=== PATIENT | female | born 1980 | race Caucasian/White ===

== ENCOUNTER 2016-11-11 11:25 | Emergency (ER) | payer SELFPAY ==
[2016-11-11 11:34] VITALS: BP 122/67
--- NOTE | 2016-11-11 12:17 | XRAY Preliminary Report ---
Exam: XR Ankle 3 View RT IMPRESSION: 1. Well-corticated ossification consistent with old avulsion injury at the tip of the medial malleolu s. 2. Lateral soft tissue swelling. [facility] SITE ID: [id number]
--- NOTE | 2016-11-11 12:19 | XRAY Report ---
EXAM: RIGHT ANKLE RADIOGRAPHY EXAM DATE: 11/11/2016 11:54 AM. CLINICAL HISTORY: Limited ROM and pain with ambulation. . COMPARISON: None. TECHNIQUE: 3 views. FINDINGS: Bones: Small corticated ossification adjacent to the inferior tip of the medial malleolus. No acute f racture identified. No significant joint space narrowing. Ankle mortise appears intact. Joints: Normal. No effusion. No subluxations. The ankle mortise is normally aligned. Soft Tissues: Lateral soft tissue swelling. IMPRESSION: 1. Well-corticated ossification consistent with old avulsion injury at the tip of the medial malleolu s. 2. Lateral soft tissue swelling. [facility] Referring Provider Line: [phone] SITE ID: [id number]
--- NOTE | 2016-11-11 12:59 | ED Physician Documentation ---
PD HPI LOWER EXT INJURY - Stated complaint Stated Complaint: R ANKLE INJ - Chief complaint Chief Complaint: Trauma Ext - History obtained from History obtained from: Patient - History of Present Illness PD HPI LOW EXT INJURY LOCATION: Right, Ankle Type of injury: Twist Where injury occurred: Home Timing - onset: Last night Timing - duration: Days (1) Timing - details: Abrupt onset Pain level max: 8 Pain level now: 5 Improved by: Rest, Ice, Immobilization Worsened by: Moving, Palpating Associated symptoms: Swelling. 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 - Present Medications Home Medications: Ambulatory Orders Medication Instructions Recorded Confirmed Hydrocodone/Acetaminophen 1 - 2 each PO Q6H PRN #14 tablet 11/11/16 [Hydrocodon-Acetaminophen 5-325] - Allergies Allergies/Adverse Reactions: Allergies Allergy/AdvReac Type Severity Reaction Status Date / Time No Known Drug Allergies Allergy Verified 11/11/16 11:34 - Social History Does the pt smoke?: No Smoking Status: Never smoker Does the pt drink ETOH?: Yes Does the pt have substance abuse?: Yes - Immunizations Immunizations are current?: Yes - POLST Patient has POLST: No PD ED PE NORMAL - Vitals Vital signs reviewed: Yes - General General: Alert and oriented X 3, No acute distress - HEENT HEENT: Moist mucous membranes - Cardiac Cardiac: RRR - Respiratory Respiratory: No respiratory distress, Clear bilaterally - Derm Derm: Warm and dry - Extremities Extremities: Other (R ankle - TTP lateral malleolus. NVI. o/w normal foot and ankle exam. ) - Neuro Neuro: Alert and oriented X 3 - Psych Psych: Normal mood, Normal affect Results - Vitals Vitals: Vital Signs - 24 hr 11/11/16 11:30 Temperature 36.7 C Heart Rate 65 Respiratory 12 Rate Blood Pressure 122/67 O2 Saturation 100 Oxygen O2 Source Room air - Rads (name of study) R ankle xray Radiology: Prelim report reviewed, EMP read contemporaneously, See rad report ( Well-corticated ossification consistent with old avulsion injury at the tip of the medial malleolus. Lateral soft tissue welling. ) PD MEDICAL DECISION MAKING - ED course Complexity details: reviewed results, re-evaluated patient, considered differential, d/w patient ED course: Patient is a 36-year-old female who presents to the emergency department what appears to be an ankle sprain. No acute findings on x-ray. Placed in a splint for comfort as well as crutches. Counseled regarding missed fractures secondary to acute swelling and may need repeat xrays if not improving. Patient counseled regarding signs and symptoms for which I believe and urgent re -evaluation would be necessary. Patient with good understanding of and agreement to plan and is comfortable going home at this time This document was made in part using voice recognition software. While efforts are made to proofread this document, sound alike and grammatical errors may occur. Departure - Departure Disposition: 01 Home, Self Care Clinical Impression: Ankle sprain Qualifiers: Encounter type: initial encounter Involved ligament of ankle: unspecified ligament Laterality: right Qualified Code(s): S93.401A - Sprain of unspecified ligament of right ankle, initial encounter Condition: Good Instructions: ED Sprain Ankle W X Ray Follow-Up: Marin Blank MD [Primary Care Provider] - Within 1 week Prescriptions: Hydrocodone/Acetaminophen [Hydrocodon-Acetaminophen 5-325] 1 - 2 each PO Q6H PRN #14 tablet PRN Reason: pain Comments: Return if you worsen. This should improve over the next week or so. You may bear weight as tolerated. Follow-up with your doctor for further evaluation. Do not drink alcohol or drive while on narcotic pain medicine. Note that many narcotic pain relievers also contain tylenol/acetaminophen. Please ensure that your total dose of acetaminophen from all sources does not exceed 3 grams (3000mg) per day. You may constipated on this medication, take a stool softener such as "Colace" twice a day while you are on it. Also recommend a eonu-ksk-nabhjmy laxative such as senna or MiraLAX any day that you do not have a bowel movement. If you received narcotic pain medication in the emergency department, do not drive or operate machinery for the next 24 hours. Discharge Date/Time: 11/11/16 13:26
[2016-11-11] MEDS ORDERED: HYDROcod/ACETAM 5/325 MG TABLET PO STA (13:06)
[2016-11-11] MEDS ORDERED: HYDROcod/ACETAM 5/325 MG TABLET ONE (13:10)
== END 2016-11-11 13:26 | disposition home or self-care (01) ==
LOC: ED 11:25
DX: S93.401A Sprain of unspecified ligament of right ankle, initial encounter (principal); X50.0XXA Overexertion from strenuous movement or load, initial encounter; Y92.019 Unspecified place in single-family (private) house as the place of occurrence of the external cause
CPT/HCPCS: 73610; 99283; A9270

== ENCOUNTER 2016-12-01 11:21 | Emergency (ER) | payer SELFPAY ==
--- NOTE | 2016-12-01 12:02 | ED Physician Documentation ---
PD HPI LOWER EXT INJURY - Stated complaint Stated Complaint: PAIN IN FOOT - Chief complaint Chief Complaint: Ext Problem - History obtained from History obtained from: Patient - History of Present Illness PD HPI LOW EXT INJURY LOCATION: Other (Seen here about 3 weeks ago for an ankle sprain, x-ray at that time showed a well-corticated ossification consistent with prior avulsion injury. She was very slowly getting better but has worsened again over the last few days with both medial and lateral ankle pain and is nonweightbearing again.) Review of Systems Constitutional: denies: Fever, Chills : reports: Control (tubal ligation). 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 - Present Medications Home Medications: Ambulatory Orders Medication Instructions Recorded Confirmed Ibuprofen 200 - 600 mg PO Q8HR PRN 12/01/16 12/01/16 - Allergies Allergies/Adverse Reactions: Allergies Allergy/AdvReac Type Severity Reaction Status Date / Time No Known Drug Allergies Allergy Verified 12/01/16 11:54 - Social History Does the pt smoke?: No Smoking Status: Never smoker Does the pt drink ETOH?: Yes Does the pt have substance abuse?: Yes Substance Use and Type: Marijuana - Immunizations Immunizations are current?: Yes - POLST Patient has POLST: No PD ED PE NORMAL - Vitals Vital signs reviewed: Yes - General General: Alert and oriented X 3, No acute distress - Extremities Extremities: Other (Mild TTP R ATFL > both malleoli, no swelling/bruising.) Results - Vitals Vitals: Vital Signs - 24 hr 12/01/16 11:42 Temperature 36.6 C Heart Rate 64 Respiratory 18 Rate Blood Pressure 128/68 O2 Saturation 100 Oxygen O2 Source Room air - Rads (name of study) R ankle 3v Radiology: EMP read contemporaneously (no change, no recent frx) Departure - Departure Disposition: 01 Home, Self Care Clinical Impression: Ankle sprain Qualifiers: Encounter type: initial encounter Involved ligament of ankle: unspecified ligament Laterality: right Qualified Code(s): S93.401A - Sprain of unspecified ligament of right ankle, initial encounter Condition: Good Instructions: ED Sprain Ankle W X Ray
--- NOTE | 2016-12-01 13:30 | XRAY Preliminary Report ---
Exam: XR Ankle 3 View RT Impression: No evidence of an acute fracture. No significant change when compared to the previous study. [facility] SITE ID: [id number]
--- NOTE | 2016-12-01 13:33 | XRAY Report ---
EXAM: RIGHT ANKLE RADIOGRAPHY EXAM DATE: 12/01/2016 12:25 PM. CLINICAL HISTORY: Ankle inj, recheck 3 weeks ago. COMPARISON: 11/11/2016. TECHNIQUE: 3 views. FINDINGS: There is redemonstration of a well corticated ossification center inferior to the medial malleolus wi th a similar appearance to the previous study. The ankle mortise is intact. No acute fracture is iden tified. Impression: No evidence of an acute fracture. No significant change when compared to the previous study. [facility] Referring Provider Line: [phone] SITE ID: [id number]
[2016-12-01 13:47] VITALS: BP 111/74
== END 2016-12-01 13:46 | disposition home or self-care (01) ==
LOC: ED 11:21
DX: S93.401A Sprain of unspecified ligament of right ankle, initial encounter (principal); X58.XXXA Exposure to other specified factors, initial encounter
CPT/HCPCS: 99283

== ENCOUNTER 2017-04-21 10:26 | Emergency (ER) | payer SELFPAY ==
--- NOTE | 2017-04-21 11:28 | ED Physician Documentation ---
History of Present Illness - Stated complaint Stated Complaint: DIZZINESS,HEAD/SINUS PRESSURE - Chief complaint Chief Complaint: Heent - Additonal information Additional information: hx from pt 26 female to the ER with head congestion cough and vertigo X about 2 weeks no relief with OTC decongestants s/p tubal ligation Review of Systems Ears: reports: Ear pain Nose: reports: Congestion, Sinus pressure / pain Respiratory: reports: Cough Neurologic: reports: Headache, Other (vertigo) PD PAST MEDICAL HISTORY - Past Medical History Past Medical History: No Cardiovascular: None Respiratory: None Endocrine/Autoimmune: None Psych: None Musculoskeletal: Chronic back pain - Past Surgical History 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 - Present Medications Home Medications: Ambulatory Orders Medication Instructions Recorded Confirmed Ibuprofen 200 - 600 mg PO Q8HR PRN 12/01/16 12/01/16 Amox/Clav 875/125 [Augmentin] 1 each PO Q12H #20 tablet 04/21/17 Fluticasone [Flonase] 1 sprays FELIPE BID PRN #1 bottle 04/21/17 Meclizine [Antivert] 25 mg PO Q6H PRN #20 tablet 04/21/17 Pseudoephedrine [Sudafed] 30 mg PO Q6H PRN #20 tablet 04/21/17 - Allergies Allergies/Adverse Reactions: Allergies Allergy/AdvReac Type Severity Reaction Status Date / Time No Known Drug Allergies Allergy Verified 12/01/16 11:54 - Social History Does the pt smoke?: No Smoking Status: Never smoker Does the pt drink ETOH?: Yes Does the pt have substance abuse?: Yes - Immunizations Immunizations are current?: Yes - POLST Patient has POLST: No PD ED PE NORMAL - Vitals Vital signs reviewed: Yes - HEENT HEENT: PERRL, EOMI (with horiz nystagmus and vertigo), Other (mild pao frontal and maxillary sinus TTP). No: Ears normal (retracted s erythema) - Cardiac Cardiac: RRR - Respiratory Respiratory: No respiratory distress, Clear bilaterally - Abdomen Abdomen: Soft, Non tender - Neuro Neuro: Alert and oriented X 3, No motor deficit Results - Vitals Vitals: Vital Signs - 24 hr 04/21/17 10:29 Temperature 36.5 C Heart Rate 71 Respiratory 14 Rate Blood Pressure 113/73 O2 Saturation 100 Oxygen O2 Source Room air Departure - Departure Disposition: 01 Home, Self Care Clinical Impression: Vertigo Sinusitis Qualifiers: Sinusitis location: unspecified location Chronicity: acute Recurrence: not specified as recurrent Qualified Code(s): J01.90 - Acute sinusitis, unspecified Condition: Good Instructions: ED Headache Sinus, ED Vertigo Unspecified Follow-Up: Marin Blank MD [Primary Care Provider] - Prescriptions: Amox/Clav 875/125 [Augmentin] 1 each PO Q12H #20 tablet Fluticasone [Flonase] 1 sprays FELIPE BID PRN #1 bottle PRN Reason: allergies Meclizine [Antivert] 25 mg PO Q6H PRN #20 tablet PRN Reason: Dizziness Pseudoephedrine [Sudafed] 30 mg PO Q6H PRN #20 tablet PRN Reason: congestion Comments: Try the decongestants and perhaps a sinus irrigation kit for two days - if that does not clear your sinus pressure then you can start the antibiotics Meclizine as needed for dizziness Recommend not driving when you are dizzy Forms: Activity restrictions
[2017-04-21 11:39] VITALS: BP 117/84
== END 2017-04-21 11:37 | disposition home or self-care (01) ==
LOC: ED 10:26
DX: R42 Dizziness and giddiness (principal); J01.90 Acute sinusitis, unspecified
CPT/HCPCS: 99283

== ENCOUNTER 2017-05-07 08:35 | Emergency (ER) | payer SELFPAY ==
--- NOTE | 2017-05-07 09:29 | ED Physician Documentation ---
History of Present Illness - Stated complaint Stated Complaint: cough - Chief complaint Chief Complaint: Resp - Additonal information Additional information: hx from pt sick since early Dec getting worse now with sore throat cough weakness, soa body aches post tussive emesis no diarrhea denies preg s/p tubal no travel no sick contacts missed a lot of work Review of Systems Constitutional: reports: Fever (low grade in ER), Myalgias. 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 - Present Medications Home Medications: Ambulatory Orders Medication Instructions Recorded Confirmed Benzonatate [Tessalon] 100 mg PO TID PRN #20 capsule 05/07/17 Dextromethorphan/Benzocaine 1 each PO Q4H PRN #20 lozenge 05/07/17 [Cepacol Sorethroat-Cough Caroline] guaiFENesin/DEXTROMETHORPHAN 10 ml PO Q6H PRN #120 ml 05/07/17 [Robitussin Dm] - Allergies Allergies/Adverse Reactions: Allergies Allergy/AdvReac Type Severity Reaction Status Date / Time No Known Drug Allergies Allergy Verified 12/01/16 11:54 - Social History Does the pt smoke?: No Smoking Status: Never smoker Does the pt drink ETOH?: Yes Does the pt have substance abuse?: Yes - Immunizations Immunizations are current?: Yes - POLST Patient has POLST: No PD ED PE NORMAL - Vitals Vital signs reviewed: Yes - General General: Alert and oriented X 3 - HEENT HEENT: PERRL, Moist mucous membranes. No: Pharynx benign (erythema s exudate) - Neck Neck: Supple, no meningeal sign - Cardiac Cardiac: RRR - Respiratory Respiratory: No respiratory distress, Clear bilaterally - Abdomen Abdomen: Soft, Non tender - Derm Derm: No rash - Extremities Extremities: No edema, No calf tenderness / cord - Neuro Neuro: Alert and oriented X 3 Results - Vitals Vitals: Vital Signs - 24 hr 05/07/17 08:38 Temperature 37.6 C H Heart Rate 67 Respiratory 18 Rate Blood Pressure 112/74 O2 Saturation 100 Oxygen O2 Source Room air - Labs Labs: Laboratory Tests 05/07/17 05/07/17 09:20 09:20 Influenza A (Rapid) Negative Influenza B (Rapid) Negative Influenza Types A,B Ag - Group A Strep Rapid Negative - Rads (name of study) CXR Radiology: See rad report (neg) Departure - Departure Disposition: 01 Home, Self Care Clinical Impression: Bronchitis Condition: Good Instructions: ED URI Viral Follow-Up: Marin Blank MD [Primary Care Provider] - Prescriptions: Benzonatate [Tessalon] 100 mg PO TID PRN #20 capsule PRN Reason: to ease cough Dextromethorphan/Benzocaine [Cepacol Sorethroat-Cough Caroline] 1 each PO Q4H PRN # 20 lozenge PRN Reason: sore throat guaiFENesin/DEXTROMETHORPHAN [Robitussin Dm] 10 ml PO Q6H PRN #120 ml PRN Reason: Cough Comments: The xray does not show pneumonia and the flu and strep swabs are negative too. This does not mean you are not sick - just that this is likely a viral process and antibiotics and tamiflu are not indicated. Your are still ill - and I have prescribed medications to ease your symptoms and a note to be off work. Please follow up with your PMD as needed Return if worse Forms: Activity restrictions
--- NOTE | 2017-05-07 10:27 | XRAY Report ---
EXAM: CHEST RADIOGRAPHY EXAM DATE: 05/07/2017 09:48 AM. CLINICAL HISTORY: Persistent cough x1 month. COMPARISON: 05/13/2013. TECHNIQUE: 2 views. FINDINGS: Lungs/Pleura: Lungs remain clear. No pleural effusion or pneumothorax. Normal volumes. Mediastinum: Heart and mediastinal contours are unremarkable. Bones: Unremarkable. IMPRESSION: 1. Stable negative chest. [facility] Referring Provider Line: [phone] SITE ID: [id number]
[2017-05-07 10:54] VITALS: BP 110/71
== END 2017-05-07 10:53 | disposition home or self-care (01) ==
LOC: ED 08:35
DX: J40 Bronchitis, not specified as acute or chronic (principal)
CPT/HCPCS: 71046; 87070; 87275; 87276; 87430; 99283

== ENCOUNTER 2018-08-02 19:12 | Emergency (ER) | payer SELFPAY ==
[2018-08-02 19:22] VITALS: BP 143/89
--- NOTE | 2018-08-02 20:24 | ED Physician Documentation ---
PD HPI HEAD INJURY - Stated complaint Stated Complaint: GLF HEAD LAC - Chief complaint Chief Complaint: Laceration - History obtained from History obtained from: Patient - History of Present Illness Mechanism of head injury: Fell (tripped and fell backward, struck behind left ear on edge of furniture.) Where head injury occurred: Home Timing - onset: Today Location of injury: Left (behind left ear) Quality of pain: Aching Associated symptoms: No: LOC, AMS, Nausea / vomiting Contributing factors: No: Anticoagulated Similar symptoms before: Has not had sx before Review of Systems Constitutional: denies: Fever, Chills Nose: denies: Rhinorrhea / runny nose, Congestion Throat: denies: Sore throat Respiratory: denies: Cough GI: denies: Vomiting, Diarrhea Neurologic: denies: Focal weakness, Numbness, Altered mental status PD PAST MEDICAL HISTORY - Past Medical History Past Medical History: No Cardiovascular: None Respiratory: None Neuro: None Endocrine/Autoimmune: None GI: None 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 : None HEENT: None Psych: None Musculoskeletal: Chronic back pain Derm: None - Past Surgical History 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 - Present Medications Home Medications: Ambulatory Orders Medication Instructions Recorded Confirmed Benzonatate [Tessalon] 100 mg PO TID PRN #20 capsule 05/07/17 Dextromethorphan/Benzocaine 1 each PO Q4H PRN #20 lozenge 05/07/17 [Cepacol Sorethroat-Cough Caroline] guaiFENesin/DEXTROMETHORPHAN 10 ml PO Q6H PRN #120 ml 05/07/17 [Robitussin Dm] - Allergies Allergies/Adverse Reactions: Allergies Allergy/AdvReac Type Severity Reaction Status Date / Time No Known Drug Allergies Allergy Verified 08/02/18 20:03 - Social History Does the pt smoke?: No Smoking Status: Never smoker Does the pt drink ETOH?: Yes ETOH Use: Wine Does the pt have substance abuse?: No - Immunizations Immunizations are current?: Yes - POLST Patient has POLST: No PD ED PE NORMAL - Vitals Vital signs reviewed: Yes - General General: Alert and oriented X 3, No acute distress, Well developed/nourished - HEENT HEENT: PERRL, EOMI, Ears normal, Other (skin behind left ear, at mastoid area, with 1.5 cm laceration to fatty tissue. No FB nor bleeding right now. Edges are apart. ) - Neck Neck: Supple, no meningeal sign, No bony TTP Results - Vitals Vitals: Vital Signs - 24 hr 08/02/18 19:19 Temperature 36.9 C Heart Rate 98 Respiratory 18 Rate Blood Pressure 143/89 H O2 Saturation 99 Oxygen O2 Source Room air Procedures - Laceration (location) left postauricular area Length in cm: 1.5 Wound type: Linear, Into subcut fat, Clean Neurovascular status: Sensory intact Anesthesia: Lidocaine 1% with epi Wound Preparation: Irrigated copiously NS, Wound explored, To the base. No: FB identified Skin layer closure: Nylon, Running, Size #-0 - enter number (4), Sutures - enter # (4) Other: Patient tolerated well, No complications, Neurovascular intact, Tetanus UTD Complexity: Simple PD MEDICAL DECISION MAKING - ED course Complexity details: considered differential, d/w patient Departure - Departure Disposition: 01 Home, Self Care Clinical Impression: Accidental fall Qualifiers: Encounter type: initial encounter Qualified Code(s): W19.XXXA - Unspecified fall, initial encounter Laceration of postauricular region Qualifiers: Encounter type: initial encounter Qualified Code(s): S01.01XA - Laceration without foreign body of scalp, initial encounter Condition: Stable Record reviewed to determine appropriate education?: Yes Instructions: ED Laceration Scalp Stitch Or Stap Follow-Up: Marin Blank MD [Primary Care Provider] - Comments: It is okay to wash and shower. Clean off the wound twice a day with soap and water, or peroxide and water. Apply some antibiotic ointment to it to keep it moist. Also to watch for signs of infection such as purulence, redness or increasing pain. Return to your primary care or the ER at the specified time for suture removal. Suture removal 7-8 days. Discharge Date/Time: 08/02/18 20:58
== END 2018-08-02 20:58 | disposition home or self-care (01) ==
LOC: ED 19:12
DX: S01.81XA Laceration without foreign body of other part of head, initial encounter (principal); W01.190A Fall on same level from slipping, tripping and stumbling with subsequent striking against furniture, initial encounter; Y92.009 Unspecified place in unspecified non-institutional (private) residence as the place of occurrence of the external cause
CPT/HCPCS: 12011; 99283

== ENCOUNTER 2019-09-08 10:06 | Emergency (ER) | payer SELFPAY ==
--- NOTE | 2019-09-08 10:51 | XRAY Report ---
Reason: Rib pain Procedure Date: 09/08/2019 Accession Number: [id number] / [id number] Procedure: XR - Chest 2 View X-Ray CPT Code: 44550 Final Report FULL RESULT: EXAM: CHEST RADIOGRAPHY EXAM DATE: 09/08/2019 10:36 AM. CLINICAL HISTORY: Right-sided rib pain. COMPARISON: CHEST 2 VIEW 05/07/2017 9:36 AM. TECHNIQUE: 2 views. FINDINGS: Lungs/Pleura: No focal opacities evident. No pleural effusion. No pneumothorax. Normal volumes. Mediastinum: Heart and mediastinal contours are unremarkable. Other: No osseous abnormalities are identified. IMPRESSION: 1. No acute disease in the chest. 2. No osseous abnormalities are identified. [facility]
[2019-09-08] MEDS ORDERED: KETOROLAC 60 MG/2 ML VIAL IM STA (11:00)
[2019-09-08] MEDS ORDERED: DEXAMETHASONE 10 MG/ML VIAL PO STA (11:00)
[2019-09-08] MEDS ORDERED: CHERRY SYRUP 10 ML UDC PO ONE (11:00)
--- NOTE | 2019-09-08 11:05 | ED Physician Documentation ---
PD HPI CHEST PAIN - Stated complaint Stated Complaint: RIB PX - Chief complaint Chief Complaint: General - History obtained from History obtained from: Patient - History of Present Illness Timing - onset: How many weeks ago (3) Timing - onset during: Rest Timing - duration: Weeks (3) Timing - details: Gradual onset, Still present, Waxing and waning Quality: Sharp, Pain Location: Right chest Improved by: Rest Worsened by: Inspiration, Movement, Palpation, Position Associated symptoms: No: Shortness of air, Diaphoresis, Nausea, Vomiting, Feeling faint / dizzy, General Weakness, Palpitations Similar symptoms before: Diagnosis (rib out of place) Recently seen: Clinic - Additional information Additional information: 38-year-old female is developed some pain in the right anterior chest wall laterally and has been diagnosed with a rib out of place. She has had the ribs replaced then resolution of her symptoms twice. She is come in now with persistence of symptoms. Review of Systems Constitutional: denies: Fever Eyes: denies: Decreased vision Ears: denies: Ear pain Nose: denies: Congestion Throat: denies: Sore throat Cardiac: reports: Chest pain / pressure. 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 - Past Surgical History Past Surgical History: Yes /PIZZAMAKER: Tubal ligation - Present Medications Home Medications: Ambulatory Orders Medication Instructions Recorded Confirmed Albuterol mg INH Q4H PRN 09/08/19 Beclomethasone 40 Mcg [Qvar 40] 1 puffs INH BID 09/08/19 09/08/19 Cyclobenzaprine [Flexeril] 10 mg PO PRN PRN 09/08/19 09/08/19 Hydrocodone/Acetaminophen 1 - 2 each PO Q6H PRN #14 tablet 09/08/19 [Hydrocodon-Acetaminophen 5-325] - Allergies Allergies/Adverse Reactions: Allergies Allergy/AdvReac Type Severity Reaction Status Date / Time No Known Drug Allergies Allergy Verified 08/02/18 20:03 - Social History Does the pt smoke?: No Smoking Status: Never smoker Does the pt drink ETOH?: Yes Does the pt have substance abuse?: No - Immunizations Immunizations are current?: Yes - POLST Patient has POLST: No PD ED PE NORMAL - Vitals Vital signs reviewed: Yes (Hypertensive) - General General: Alert and oriented X 3, No acute distress, Well developed/nourished - HEENT HEENT: Atraumatic, PERRL, EOMI - Neck Neck: Supple, no meningeal sign, No bony TTP - Cardiac Cardiac: RRR, No murmur - Respiratory Respiratory: No respiratory distress, Clear bilaterally, Other (There is chest wall point tenderness to the anterior lateral right chest above the breast and a second area of tenderness lateral to the axilla at nearly the same level. There are no palpable masses.) - Abdomen Abdomen: Soft, Non tender - Back Back: No CVA TTP, No spinal TTP - Derm Derm: Normal color, Warm and dry, No rash - Extremities Extremities: No deformity, No edema, No calf tenderness / cord - Neuro Neuro: Alert and oriented X 3, sport intern 2-12 intact, No motor deficit, No sensory deficit, Normal speech Eye Opening: Spontaneous Motor: Obeys Commands Verbal: Oriented GCS Score: 15 - Psych Psych: Normal mood, Normal affect Results - Vitals Vitals: Vital Signs - 24 hr 09/08/19 09/08/19 10:13 11:47 Temperature 37 C 36.8 C Heart Rate 91 68 Respiratory 22 Rate Blood Pressure 152/101 H 117/78 O2 Saturation 100 99 Oxygen O2 Source Room air - Rads (name of study) chest Radiology: Prelim report reviewed (Impression: 1. No acute disease in the chest. 2 No osseous abnormalities are identified.), EMP read indepedently, See rad report PD MEDICAL DECISION MAKING - ED course Complexity details: reviewed results, re-evaluated patient, considered differential, d/w patient ED course: 38-year-old female with right sided chest wall pain has a rib out of place and this has been placed back in place by her primary. She is having persistence of symptoms. I did not palpate any lymph nodes but I did mention to the patient concern for this possibility and recommended to follow-up with her primary for potential MRI of the breast or mammogram. Here today we did a chest x-ray that appeared normal and we provided decadron and toradal. I will refill a limited script for narcotic and have the patient follow up with her primary. Departure - Departure Disposition: 01 Home, Self Care Clinical Impression: Chest wall pain Condition: Stable Instructions: ED Chest Pain Costochondritis Follow-Up: Vadim Blanco DO [Provider Admit Priv/Credential] - Prescriptions: Hydrocodone/Acetaminophen [Hydrocodon-Acetaminophen 5-325] 1 - 2 each PO Q6H PRN #14 tablet PRN Reason: pain Discharge Date/Time: 09/08/19 11:47
[2019-09-08 11:48] VITALS: BP 117/78
== END 2019-09-08 11:47 | disposition home or self-care (01) ==
LOC: ED 10:06
DX: R07.89 Other chest pain (principal)
CPT/HCPCS: 71046; 96372; 99283; 99284; A9270

== ENCOUNTER 2020-04-09 11:40 | Emergency (ER) | payer OTHER ==
--- NOTE | 2020-04-09 13:16 | ED Physician Documentation ---
PD HPI FOCAL NEURO - Stated complaint Stated Complaint: FACIAL NUMB/WEAKNESS - Chief complaint Chief Complaint: Neuro - History obtained from History obtained from: Patient - Additional information Additional information: 39-year-old woman has been Having some shoulder problems on the right side for many months now. She saw a neurologist associated with [facility] in [place]. Given that she has a family history of mitochondrial myopathy and her brother this is the leading diagnosis at this point. She had an abnormal EMG she says. Since March 31 she has been having new and worrisome symptoms. She is had discomfort in both of the legs with difficulty walking, she feels swollen and numb in her legs and face and some upper lower back pain as well as neck pain. She has had on and off sharp chest discomfort anteriorly without shortness of breath. Over the last 3 days she has developed numbness of the right side of the face and the right tongue and throat. She feels like the right eye is pulling at the corner laterally with occasional tunnel vision while she is at work. She has headaches in the right occiput and feelings of confusion discoordination and some word finding difficulties at x2. Review of Systems Ten Systems: 10 systems reviewed and negative Constitutional: reports: Fatigue. denies: Fever, Chills Eyes: denies: Loss of vision, Photophobia Ears: denies: Ear pain Throat: denies: Dental pain / toothache (but cold gums) Cardiac: reports: Chest pain / pressure. 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 - Present Medications Home Medications: Ambulatory Orders Medication Instructions Recorded Confirmed Albuterol mg INH Q4H PRN 09/08/19 Beclomethasone 40 Mcg [Qvar 40] 1 puffs INH BID 09/08/19 09/08/19 Cyclobenzaprine [Flexeril] 10 mg PO PRN PRN 09/08/19 09/08/19 Hydrocodone/Acetaminophen 1 - 2 each PO Q6H PRN #14 tablet 09/08/19 [Hydrocodon-Acetaminophen 5-325] - Allergies Allergies/Adverse Reactions: Allergies Allergy/AdvReac Type Severity Reaction Status Date / Time No Known Drug Allergies Allergy Verified 04/09/20 11:54 - Social History Does the pt smoke?: No Smoking Status: Never smoker Does the pt drink ETOH?: Yes Does the pt have substance abuse?: No - Immunizations Immunizations are current?: Yes - POLST Patient has POLST: No PD ED PE NORMAL - Vitals Vital signs reviewed: Yes - General General: Alert and oriented X 3, No acute distress - HEENT HEENT: PERRL, EOMI, Other (Mildly diminished sensation on the right side of the face that spares the forehead.) - Neck Neck: Supple, no meningeal sign, No bony TTP - Cardiac Cardiac: RRR, No murmur - Respiratory Respiratory: No respiratory distress, Clear bilaterally - Abdomen Abdomen: Non tender - Back Back: No CVA TTP, No spinal TTP - Derm Derm: Normal color, Warm and dry - Extremities Extremities: No edema, No calf tenderness / cord - Neuro Neuro: Alert and oriented X 3, No motor deficit, Normal speech Eye Opening: Spontaneous Motor: Obeys Commands Verbal: Oriented GCS Score: 15 NIHSS - Time Time: 13:05 - Level of Consciousness Level of consciousness: (0) Alert, Keenly responsive LOC Questions: (0) Answers both Q's correct LOC Commands: (0) Performs both correctly - Gaze Best Gaze: (0) Normal - Visual Visual: (0) No loss - Facial Palsy Facial Palsy: (0) Normal, symmetrical movement - Motor Arms (both separate) Motor Arm (right): (0) No drift Motor Arm (left): (0) No drift - Motor Legs (both separate) Motor Leg (right): (0) No drift Motor Leg (left): (0) No drift - Limb Ataxia Limb Ataxia: (0) Absent - Sensory Sensory: (1) Cvmd-[id number] loss - Best Language Best Language: (0) No aphasia - Dysarthria Dysarthria: (0) Normal - Extinction and Inattention (formally neg Extinction and inattention: (0) No abnormality - Total Score/Results Total Score/Result: 1 Results - Vitals Vitals: Vital Signs - 24 hr 04/09/20 04/09/20 04/09/20 11:49 14:00 16:06 Temperature 37.0 C Heart Rate 89 79 75 Respiratory 20 18 18 Rate Blood Pressure 152/92 H 123/75 129/79 O2 Saturation 100 95 96 04/09/20 18:35 Temperature Heart Rate 75 Respiratory 14 Rate Blood Pressure 137/74 H O2 Saturation 99 Oxygen O2 Source Room air - Labs Labs: Laboratory Tests 04/09/20 04/09/20 04/09/20 13:16 13:37 13:37 WBC 7.0 RBC 4.30 Hgb 14.4 Hct 40.5 MCV 94.2 MCH 33.5 H MCHC 35.6 RDW 12.0 Plt Count 293 MPV 9.9 Neut # (Auto) 5.2 Lymph # (Auto) 1.2 L [place] # (Auto) 0.5 Eos # (Auto) 0.1 Baso # (Auto) 0.0 Absolute Nucleated RBC 0.00 Nucleated RBC % 0.0 Sodium 137 Potassium 3.5 Chloride 101 Carbon Dioxide 25 Anion Gap 11.0 BUN 11 Creatinine 0.6 Estimated GFR (MDRD) 112 Glucose 105 H Calcium 9.0 Total Bilirubin 0.8 AST 15 ALT 16 Alkaline Phosphatase 55 Troponin I High Sens Total Protein 7.7 Albumin 4.8 Globulin 2.9 Albumin/Globulin Ratio 1.7 Urine Color YELLOW Urine Clarity CLEAR Urine pH 6.0 Ur Specific [place] 1.015 Urine Protein NEGATIVE Urine Glucose (UA) NEGATIVE Urine Ketones NEGATIVE Urine Occult Blood TRACE-INTA Urine Nitrite NEGATIVE Urine Bilirubin NEGATIVE Urine Urobilinogen 0.2 (NORMAL) Ur Leukocyte Esterase NEGATIVE Ur Microscopic Review NOT INDICATED Urine Culture Comments NOT INDICATED Urine HCG, Qual NEGATIVE Urine Opiates Screen NEGATIVE Ur Oxycodone Screen NEGATIVE Urine Methadone Screen NEGATIVE Ur Propoxyphene Screen NEGATIVE Ur Barbiturates Screen NEGATIVE Ur Tricyclics Screen NEGATIVE Ur Phencyclidine Scrn NEGATIVE Ur Amphetamine Screen NEGATIVE U Methamphetamines Scrn NEGATIVE U Benzodiazepines Scrn NEGATIVE Urine Cocaine Screen NEGATIVE U Cannabinoids Screen POSITIVE H 04/09/20 13:37 WBC RBC Hgb Hct MCV MCH MCHC RDW Plt Count MPV Neut # (Auto) Lymph # (Auto) [place] # (Auto) Eos # (Auto) Baso # (Auto) Absolute Nucleated RBC Nucleated RBC % Sodium Potassium Chloride Carbon Dioxide Anion Gap BUN Creatinine Estimated GFR (MDRD) Glucose Calcium Total Bilirubin AST ALT Alkaline Phosphatase Troponin I High Sens < 2.3 L Total Protein Albumin Globulin Albumin/Globulin Ratio Urine Color Urine Clarity Urine pH Ur Specific [place] Urine Protein Urine Glucose (UA) Urine Ketones Urine Occult Blood Urine Nitrite Urine Bilirubin Urine Urobilinogen Ur Leukocyte Esterase Ur Microscopic Review Urine Culture Comments Urine HCG, Qual Urine Opiates Screen Ur Oxycodone Screen Urine Methadone Screen Ur Propoxyphene Screen Ur Barbiturates Screen Ur Tricyclics Screen Ur Phencyclidine Scrn Ur Amphetamine Screen U Methamphetamines Scrn U Benzodiazepines Scrn Urine Cocaine Screen U Cannabinoids Screen PD MEDICAL DECISION MAKING - ED course ED course: 39-year-old woman presents with an onset of symptoms that would suggest central neurologic problem such as MS. MRI was done without intracranial findings. Could be a peripheral polyneuropathy?. She is seeing a neurologist in 2 days. Departure - Departure Disposition: Home, Self Care Clinical Impression: Peripheral neuropathy Qualifiers: Peripheral neuropathy type: polyneuropathy, unspecified Qualified Code(s): G62.9 - Polyneuropathy, unspecified Condition: Good Record reviewed to determine appropriate education?: Yes Comments: The cause of your symptoms today is not clear. Your MRI was normal except for a few mucous cysts in your sinuses which should not cause any symptoms consistent with your's. Follow-up with the neurologist on Thursday as scheduled. Return for new or worsening symptoms.
[2020-04-09 13:25] LABS: MUDS CUTOFF CONCENTRATIONS CUTOFF CONC BELOW:
[2020-04-09 13:39] LABS: BILIRUBIN,URINE NEGATIVE (NEGATIVE); GLUCOSE, URINE (UA) NEGATIVE (NEGATIVE); KETONES,URINE (UA) NEGATIVE (NEGATIVE); LEUKOCYTE ESTERASE, URINE NEGATIVE (NEGATIVE); NITRITE,URINE NEGATIVE (NEGATIVE); OCCULT BLOOD,URINE TRACE-INTA (NEGATIVE); PROTEIN,URINE NEGATIVE (NEGATIVE); UROBILINOGEN,URINE 0.2 (NORMAL) E.U./dL (NORMAL)
[2020-04-09 13:44] LABS: CLARITY,URINE CLEAR (CLEAR); HCG UR QUAL NEGATIVE
--- NOTE | 2020-04-09 13:46 | XRAY Report ---
PROCEDURE: Chest 2 View X-Ray INDICATIONS: chest pain TECHNIQUE: 2 view(s) of the chest. COMPARISON: 09/08/2019, 05/07/2017. FINDINGS: Surgical changes and devices: None. Lungs and pleura: No pleural effusions or pneumothorax. Lungs are clear. Mediastinum: Mediastinal contours are normal. Heart size is normal. Bones and chest wall: No suspicious bony abnormalities. Soft tissues appear unremarkable. IMPRESSION: No acute cardiopulmonary disease process. Reviewed by: Sofia Javed MD, PhD on 04/09/2020 1:44 PM PST Approved by: Sofia Javed MD, PhD on 04/09/2020 1:44 PM PST Station ID: [id number]
[2020-04-09 13:51] LABS: AMPHETAMINE SCREEN,URINE NEGATIVE (NEGATIVE); BENZODIAZEPINES SCREEN, URINE NEGATIVE (NEGATIVE); COCAINE SCREEN URINE NEGATIVE (NEGATIVE); METHADONE SCREEN, URINE NEGATIVE (NEGATIVE); METHAMPHETAMINES SCREEN, URINE NEGATIVE (NEGATIVE); OPIATE SCREEN, URINE NEGATIVE (NEGATIVE); OXYCODONE SCREEN, URINE NEGATIVE (NEGATIVE); PROPOXYPHENE SCREEN, URINE NEGATIVE (NEGATIVE); TRICYCLIC ANTIDEPRESSANT,URINE NEGATIVE (NEGATIVE)
[2020-04-09 13:57] LABS: BASOPHILS % (AUTO) 0.4 %; EOSINOPHILS # (AUTO) 0.1 10^3/uL (0.0-0.7); EOSINOPHILS % (AUTO) 0.9 %; HGB - HEMOGLOBIN 14.4 g/dL (12.0-16.0); LYMPHOCYTES # (AUTO) 1.2 10^3/uL (1.5-3.5); LYMPHOCYTES % (AUTO) 16.5 %; MEAN CORPUSCULAR HEMOGLOBIN 33.5 pg (27.0-31.0); MEAN CORPUSCULAR HGB CONC 35.6 g/dL (32.0-36.0); MEAN CORPUSCULAR VOLUME 94.2 fL (81.0-99.0); MEAN PLATELET VOLUME 9.9 fL (7.9-10.8); MONOCYTES # (AUTO) 0.5 10^3/uL (0.0-1.0); MONOCYTES % (AUTO) 7.6 %; NEUTROPHILS # (AUTO) 5.2 10^3/uL (1.5-6.6); NEUTROPHILS % (AUTO) 74.5 %; PLT - PLATELET COUNT 293 10^3/uL (130-450)
[2020-04-09 14:11] LABS: ALBUMIN 4.8 g/dL (3.2-5.5); ALBUMIN/GLOBULIN RATIO 1.7 (1.0-2.2); BILIRUBIN,TOTAL 0.8 mg/dL (0.2-1.0); CREATININE 0.6 mg/dL (0.4-1.0); TOTAL PROTEIN 7.7 g/dL (6.7-8.2)
[2020-04-09] MEDS ORDERED: GADOBUTROL 7.5 MMOL/7.5 ML VIAL ONE (17:56)
[2020-04-09] MEDS ORDERED: GADOBUTROL 7.5 MMOL/7.5 ML VIAL IVP ONE (18:21)
[2020-04-09 18:36] VITALS: BP 137/74
--- NOTE | 2020-04-09 19:03 | MRI Report ---
PROCEDURE: Brain W/WO INDICATIONS: R facial numbness, uncoordination CONTRAST: IV CONTRAST: Gadavist ml: 7.5 TECHNIQUE: Noncontrast axial T1 spin echo, axial T2 fast spin echo, sagittal and axial FLAIR, coronal T2 fast sp in echo, axial gradient echo, axial diffusion and ADC through the brain. After the administration of contrast, axial and coronal T1 spin echo with fat saturation through the brain. COMPARISON: None. FINDINGS: Image quality: Excellent. CSF spaces: Basal cisterns are patent. No extra-axial fluid collections. Ventricles are normal in size and shape. Brain: No midline shift. No intracranial bleeds or masses. No abnormal intracranial enhancement. There is cerebral volume loss for age. There is periventricular white matter chronic small vessel is chemic change. The brainstem appears normal. Diffusion-weighted images demonstrate no acute ischemi c insults. No chronic ischemic insults. Normal intravascular flow voids are present. Skull and face: Calvarial marrow is normal in signal. Orbits appear normal. Sinuses: A few T2 hyperintense polypoid lesions at the base of both maxillary sinuses. Sinuses and m astoids appear otherwise clear. IMPRESSION: 1. No MR evidence of acute process in the brain. 2. A few small mucous retention cysts in the maxillary sinuses. Reviewed by: Nia Perdue MD on 04/09/2020 7:01 PM PST Approved by: Nia Perdue MD on 04/09/2020 7:01 PM PST Station ID: [id number]
== END 2020-04-09 19:12 | disposition home or self-care (01) ==
LOC: ED 11:40
DX: G62.9 Polyneuropathy, unspecified (principal); J34.1 Cyst and mucocele of nose and nasal sinus
CPT/HCPCS: 36415; 70553; 71046; 80053; 80306; 81003; 81025; 84484; 85025; 99284; A9585; 81001; 87086

== ENCOUNTER 2020-09-04 16:11 | Outpatient (CLI) | payer OTHER ==
--- NOTE | 2020-09-04 17:12 | XRAY Report ---
PROCEDURE: Ankle 3 View RT INDICATIONS: ANKLE AND TIBIAL PX FOLLOWING INVERSION INJURY TECHNIQUE: 3 views of the ankle were acquired. COMPARISON: None FINDINGS: Bones: No fractures or dislocations. Ankle mortise is normally aligned. No suspicious bony lesions . Soft tissues: No tibiotalar joint effusion. Achilles tendon appears normal. IMPRESSION: No gross acute ankle fracture or dislocation. Ankle mortise is congruent. Reviewed by: Yogesh Donaldson MD on 09/04/2020 5:11 PM PDT Approved by: Yogesh Donaldson MD on 09/04/2020 5:11 PM PDT Station ID: [id number]
== END 2020-09-04 16:12 | disposition home or self-care (01) ==
LOC: DI.N 16:11
PROVIDERS: ATTEND Physician Assistant Medical
DX: M25.571 Pain in right ankle and joints of right foot (principal); M79.661 Pain in right lower leg

== ENCOUNTER 2021-03-10 09:47 | Emergency (ER) | payer OTHER ==
[2021-03-10] MEDS ORDERED: SODIUM CHLORIDE 0.9% 1,000 ML IV STA ×2 (10:21→11:42)
--- NOTE | 2021-03-10 10:24 | ED Physician Documentation ---
PD HPI NVD - Stated complaint Stated Complaint: HERNÁNDEZ/DIARRHEA - Chief complaint Chief Complaint: Abd Pain - History obtained from History obtained from: Patient - History of Present Illness Timing - onset: How many weeks ago (1) Timing - duration: Weeks (1) Timing - details: Gradual onset, Still present, Waxing and waning Associated symptoms: Other (headache). No: Fever, Dysuria Contributing factors: No: Sick contact, Bad food, Travel, Recent antibiotics, Alcohol use, Anticoagulated, Diabetes Improved by: Vomiting Similar symptoms before: Diagnosis (gastroenteritis) Recently seen: Not recently seen - Additonal information Additional information: Previous well 40-year-old unvaccinated female has developed diarrhea and she has had an increase in her diarrhea over the past week she has had some vomiting 1 day and she is developed a bit of a headache as well. She is come to the emergency department today feeling dehydrated. She does not think she has been exposed to Covid. Review of Systems Constitutional: reports: Chills. denies: Fever Eyes: denies: Decreased vision Ears: denies: Ear pain Nose: denies: Congestion Throat: denies: Sore throat Cardiac: denies: Chest pain / pressure, Palpitations Respiratory: denies: Dyspnea, Cough GI: reports: Nausea, Vomiting, Diarrhea. 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 - Present Medications Home Medications: Ambulatory Orders Medication Instructions Recorded Confirmed Albuterol mg INH Q4H PRN 09/08/19 Beclomethasone 40 Mcg [Qvar 40] 1 puffs INH BID 09/08/19 09/08/19 Cyclobenzaprine [Flexeril] 10 mg PO PRN PRN 09/08/19 09/08/19 Hydrocodone/Acetaminophen 1 - 2 each PO Q6H PRN #14 tablet 09/08/19 [Hydrocodon-Acetaminophen 5-325] Ondansetron Odt [Zofran] 4 mg TL Q6H PRN #10 tablet 03/10/21 - Allergies Allergies/Adverse Reactions: Allergies Allergy/AdvReac Type Severity Reaction Status Date / Time No Known Drug Allergies Allergy Verified 03/10/21 09:58 - Social History Does the pt smoke?: No Smoking Status: Never smoker Does the pt drink ETOH?: Yes Does the pt have substance abuse?: No - Immunizations Immunizations are current?: Yes - POLST Patient has POLST: No PD ED PE NORMAL - Vitals Vital signs reviewed: Yes (Hypertensive) - General General: No acute distress, Well developed/nourished - HEENT HEENT: Atraumatic, PERRL, EOMI - Neck Neck: Supple, no meningeal sign, No bony TTP - Cardiac Cardiac: RRR, No murmur - Respiratory Respiratory: No respiratory distress, Clear bilaterally - Abdomen Abdomen: Normal bowel sounds, Soft, Non tender, Non distended, No organomegaly - Back Back: No CVA TTP, No spinal TTP - Derm Derm: Normal color, Warm and dry, No rash - Extremities Extremities: No deformity, No edema - Neuro Neuro: Alert and oriented X 3, cad manager 2-12 intact, No motor deficit, No sensory deficit, Normal speech Eye Opening: Spontaneous Motor: Obeys Commands Verbal: Oriented GCS Score: 15 - Psych Psych: Normal mood, Normal affect Results - Vitals Vitals: Vital Signs - 24 hr 03/10/21 03/10/21 03/10/21 09:55 12:00 13:00 Temperature 36.8 C Heart Rate 94 75 78 Respiratory 16 16 16 Rate Blood Pressure 130/83 H 116/72 121/76 O2 Saturation 99 100 100 Oxygen O2 Source Room air - Labs Labs: Laboratory Tests 03/10/21 03/10/21 03/10/21 10:10 10:10 10:49 WBC 2.9 L RBC 4.53 Hgb 15.1 Hct 43.4 MCV 95.8 MCH 33.3 H MCHC 34.8 RDW 12.0 Plt Count 196 MPV 9.9 Neut # (Auto) 1.8 Lymph # (Auto) 0.7 L [place] # (Auto) 0.5 Eos # (Auto) 0.0 Baso # (Auto) 0.0 Absolute Nucleated RBC 0.00 Nucleated RBC % 0.0 Manual Slide Review Indicated Platelet Estimate NORMAL (130-450,000) Platelet Morphology NORMAL APPEARANCE RBC Morph Micro Appear NORMAL APPEARANCE Sodium 139 Potassium 3.8 Chloride 104 Carbon Dioxide 24 Anion Gap 11.0 BUN 8 Creatinine 0.8 Estimated GFR (MDRD) 80 L Glucose 104 H Calcium 8.7 Total Bilirubin 0.6 AST 20 ALT 20 Alkaline Phosphatase 63 Total Protein 7.8 Albumin 4.6 Globulin 3.2 Albumin/Globulin Ratio 1.4 Lipase 36 Urine Color YELLOW Urine Clarity SL. CLOUDY Urine pH 5.5 Ur Specific [place] >=1.030 H Urine Protein NEGATIVE Urine Glucose (UA) NEGATIVE Urine Ketones 40 H Urine Occult Blood SMALL H Urine Nitrite NEGATIVE Urine Bilirubin NEGATIVE Urine Urobilinogen 0.2 (NORMAL) Ur Leukocyte Esterase NEGATIVE Urine RBC 0-5 Urine WBC 0-3 Ur Squamous Epith Cells MANY Squamous H Urine Bacteria Few Ur Microscopic Review INDICATED Urine Culture Comments NOT INDICATED Urine HCG, Qual NEGATIVE PD MEDICAL DECISION MAKING - ED course Complexity details: reviewed results, re-evaluated patient, considered differential, d/w patient ED course: 40-year-old female with acute diarrhea and vomiting is dehydrated has mild headache 4 out of 10 and she believes her exposure to Covid is nil. Today we have placed an IV line and we have begun fluids. We will use a send out Covid swab. We provided 2 liters of saline IV with improvement. She was able to provide a stool specimen and this is a send out . Departure - Departure Disposition: 01 Home, Self Care Clinical Impression: Gastroenteritis, Dehydration Condition: Stable Instructions: ED Dehydration, ED Gastroenteritis Viral Follow-Up: Vadim Blanco DO [Primary Care Provider] - Prescriptions: Ondansetron Odt [Zofran] 4 mg TL Q6H PRN #10 tablet PRN Reason: Nausea / Vomiting Discharge Date/Time: 03/10/21 13:24
[2021-03-10 10:26] LABS: BASOPHILS % (AUTO) 0.3 %; HCT - HEMATOCRIT 43.4 % (37.0-47.0); HGB - HEMOGLOBIN 15.1 g/dL (12.0-16.0); LYMPHOCYTES # (AUTO) 0.7 10^3/uL (1.5-3.5); LYMPHOCYTES % (AUTO) 22.1 %; MEAN CORPUSCULAR HEMOGLOBIN 33.3 pg (27.0-31.0); MEAN CORPUSCULAR HGB CONC 34.8 g/dL (32.0-36.0); MEAN CORPUSCULAR VOLUME 95.8 fL (81.0-99.0); MEAN PLATELET VOLUME 9.9 fL (7.9-10.8); MONOCYTES # (AUTO) 0.5 10^3/uL (0.0-1.0); NEUTROPHILS # (AUTO) 1.8 10^3/uL (1.5-6.6); NEUTROPHILS % (AUTO) 59.6 %; PLT - PLATELET COUNT 196 10^3/uL (130-450); RED BLOOD COUNT 4.53 10^6/uL (4.20-5.40); WHITE BLOOD COUNT 2.9 x10^3/uL (4.8-10.8)
[2021-03-10 10:36] LABS: ALBUMIN 4.6 g/dL (3.2-5.5); ALBUMIN/GLOBULIN RATIO 1.4 (1.0-2.2); BILIRUBIN,TOTAL 0.6 mg/dL (0.2-1.0); CALCIUM 8.7 mg/dL (8.5-10.3); CREATININE 0.8 mg/dL (0.4-1.0); POTASSIUM 3.8 mmol/L (3.5-5.0); TOTAL PROTEIN 7.8 g/dL (6.7-8.2)
[2021-03-10 10:37] LABS: SLIDE REVIEW? Indicated
[2021-03-10 10:41] LABS: PLATELET ESTIMATE, MANUAL NORMAL (130-450,000) (NORMAL); PLATELET MORPHOLOGY NORMAL APPEARANCE (NORMAL); RBC MORPHOLOGY (MULTIPLE) NORMAL APPEARANCE (NORMAL)
[2021-03-10 11:00] LABS: BILIRUBIN,URINE NEGATIVE (NEGATIVE); CLARITY,URINE SL. CLOUDY (CLEAR); GLUCOSE, URINE (UA) NEGATIVE (NEGATIVE); HCG UR QUAL NEGATIVE; KETONES,URINE (UA) 40 mg/dL (NEGATIVE); LEUKOCYTE ESTERASE, URINE NEGATIVE (NEGATIVE); NITRITE,URINE NEGATIVE (NEGATIVE); OCCULT BLOOD,URINE SMALL (NEGATIVE); PH,URINE 5.5 PH (5.0-7.5); PROTEIN,URINE NEGATIVE (NEGATIVE); UROBILINOGEN,URINE 0.2 (NORMAL) E.U./dL (NORMAL)
[2021-03-10 11:04] LABS: BACTERIA,URINE Few /HPF (None Seen); RBC,URINE 0-5 /HPF (0-5); SQUAMOUS EPITHELIAL CELL,UR MANY Squamous (<= Few); WBC,URINE 0-3 /HPF (0-5)
[2021-03-10 13:19] VITALS: BP 121/76
== END 2021-03-10 13:24 | disposition home or self-care (01) ==
LOC: ED 09:47
DX: U07.1 COVID-19 (principal); E86.0 Dehydration; K52.9 Noninfective gastroenteritis and colitis, unspecified
CPT/HCPCS: 36415; 80053; 81001; 81003; 81025; 81599; 83690; 85025; 87045; 87046; 87086; 96360; 96361; 99283

== ENCOUNTER 2021-08-06 10:38 | Outpatient (CLI) | payer OTHER ==
--- NOTE | 2021-08-06 11:35 | XRAY Report ---
PROCEDURE: Shoulder 3 View RT INDICATIONS: R SHOULDER PX TECHNIQUE: 3 views of the shoulder were acquired. COMPARISON: None. FINDINGS: BONES: No acute, displaced fracture. The joint spaces are maintained. SOFT TISSUES: No focal abnormality or appreciable pneumothorax. IMPRESSION: 1.No acute osseous abnormality. Reviewed by: Merlin Mcnamara MD on 08/06/2021 11:34 AM PDT Approved by: Merlin Mcnamara MD on 08/06/2021 11:34 AM PDT Station ID: [id number]
--- NOTE | 2021-08-06 11:36 | XRAY Report ---
PROCEDURE: Ribs 2 View RT INDICATIONS: R SIDE RIB PX TECHNIQUE: 3 views of the right ribs were acquired. COMPARISON: None. FINDINGS: SUPPORT DEVICES: None. LUNGS/PLEURA: No focal consolidation, pleural effusion or space-occupying pneumothorax. BONES/SOFT TISSUES: No acute abnormality. IMPRESSION: 1.No acute, displaced right rib fracture. Reviewed by: Merlin Mcnamara MD on 08/06/2021 11:35 AM PDT Approved by: Merlin Mcnamara MD on 08/06/2021 11:35 AM PDT Station ID: [id number]
== END 2021-08-06 10:39 | disposition home or self-care (01) ==
LOC: DI.N 10:38
PROVIDERS: ATTEND Physician Assistant
DX: R07.81 Pleurodynia (principal); M25.511 Pain in right shoulder

== ENCOUNTER 2022-07-14 09:36 | Outpatient (CLI) | payer OTHER ==
--- NOTE | 2022-07-15 10:51 | Mammography Report ---
BILATERAL DIGITAL DIAGNOSTIC MAMMOGRAM 3D/2D WITH SPOT COMPRESSION: 07/14/2022 CLINICAL: Baseline exam. Focal right breast pain. No prior exams were available for comparison. Both breasts are extremely dense, which lowers the sensitivity of mammography (category d />75% gland ular tissue). No significant masses, calcifications, or other findings are seen in either breast. IMPRESSION: INCOMPLETE: NEEDS ADDITIONAL IMAGING EVALUATION There is no abnormality seen in the right breast to correspond with the area of clinical concern, how ever, ultrasound is recommended. Based on the Tyrer Cuzick model (a risk assessment model) the patients lifetime risk is 9.4% and her 10 year risk is 1.1%. According to the ACR, ACS, and NCCN guidelines, an annual breast MRI exam danuta g with mammogram is recommended if the patients lifetime risk is 20% or greater. This exam was interpreted at Station ID: [id number]. NOTE: For mammograms, a report in lay terms will be sent to the patient. Approximately 15% of breast malignancies will not be visualized mammographically. In the management of a palpable breast mass, a negative mammogram must not discourage biopsy of a clinically suspicious lesion. Electronically Signed By: Carlyle Miranda M.D. lc/:07/14/2022 11:27:22 ACR BI-RADS Category 0: Incomplete 3340F PARENCHYMAL PATTERN: (VD) - The breast(s) demonstrate(s) extremely dense parenchyma, limiting the sen sitivity of mammography. BI-RADS CATEGORY: (0) - 0 Ultrasound [id number] Immediate follow-up LATERALITY: (B)
--- NOTE | 2022-07-15 10:51 | Ultrasound Report ---
LIMITED ULTRASOUND OF RIGHT BREAST: 07/14/2022 CLINICAL: Focal right breast pain. Comparison is made to exam dated: 07/14/2022 mammogram - [facility]. Ultrasound of the right breast 9-10 o'clock region was performed. Myers scale images of the real-time examination were reviewed. IMPRESSION: NEGATIVE There is no sonographic evidence of malignancy. There is no abnormality seen in the right breast to correspond with the area of clinical concern, how ever, clinical correlation and clinical followup are recommended. Return to annual screening schedule is recommended. This exam was interpreted at Station ID: [id number]. Electronically Signed By: Carlyle Miranda M.D. lc/:07/14/2022 11:28:18 letter sent: No_Letter Ultrasound BI-RADS: 1 Negative BI-RADS CATEGORY: (1) - 1 Unspecified - other [id number] return to screening LATERALITY: (B)
== END 2022-07-14 09:37 | disposition home or self-care (01) ==
LOC: DI 09:36
PROVIDERS: ATTEND Family Medicine
DX: N64.4 Mastodynia (principal)

== ENCOUNTER 2022-09-22 14:49 | Outpatient (CLI) | payer OTHER ==
--- NOTE | 2022-09-22 17:02 | Ultrasound Report ---
PROCEDURE: Pelvic w/Transvaginal INDICATIONS: MENORRHAGIA TECHNIQUE: Real-time scanning was performed of the pelvic organs, with image documentation. Additional endovagi nal scanning was necessary due to incomplete visualization of the adnexal and endometrial structures by transabdominal scanning. COMPARISON: None. FINDINGS: Uterus: Uterus is anteverted and normal in size at 8.0 x 4.3 x 5.9 cm. The myometrium is mildly dif fusely heterogeneous, but without dominant mass. Normal vascularity.. The endometrium measures 11 mm in combined thickness. The cervix has a normal appearance. Ovaries: The right ovary measures 1.9 x 1.6 x 1.9 cm, with a calculated ovarian volume of 3.0 cc. T he left ovary measures 3.0 x 2.6 x 2.0 cm, with a calculated ovarian volume of 8.2 cc. The ovaries h ave a normal sonographic appearance. Less than 12 follicles can be seen in each ovary. No adnexal m asses are seen. No cystic lesions measuring greater than 3 cm. Other: No pathologic free abdominal or pelvic fluid. IMPRESSION: 1. Mild myometrial heterogeneity. Otherwise normal pelvic ultrasound. Reviewed by: Nia Perdue MD on 09/22/2022 5:00 PM PDT Approved by: Nia Perdue MD on 09/22/2022 5:00 PM PDT Station ID: [id number]
== END 2022-09-22 14:50 | disposition home or self-care (01) ==
LOC: DI 14:49
PROVIDERS: ATTEND Nurse Practitioner
DX: N92.0 Excessive and frequent menstruation with regular cycle (principal)

== ENCOUNTER 2023-05-18 07:30 | Outpatient (CLI) | payer OTHER ==
[2023-05-18 13:18] LABS: INFLUENZA A- RESP PCR PANEL NOT DETECTED; INFLUENZA B - RESP PCR PANEL NOT DETECTED; RSV- RESP PCR PANEL NOT DETECTED; SARS-CoV-2 -RESP PCR PANEL NOT DETECTED
== END 2023-05-18 07:45 | disposition home or self-care (01) ==
LOC: LAB.N 07:30
PROVIDERS: ATTEND Physician Assistant Medical
DX: J40 Bronchitis, not specified as acute or chronic (principal)
CPT/HCPCS: 87637

== ENCOUNTER 2023-11-15 06:36 | Emergency (ER) | payer OTHER ==
[2023-11-15 07:08] VITALS: BP 132/86; O2SAT 100
[2023-11-15 07:40] LABS: RAPID STREP SCREEN Negative (Negative)
--- NOTE | 2023-11-15 07:43 | ED Physician Documentation ---
PD HPI URI - Stated complaint Stated Complaint: SORE THROAT - Chief complaint Chief Complaint: Heent - History obtained from History obtained from: Patient - History of Present Illness Timing - onset: How many days ago (3) Timing duration: Days (3) Timing details: Abrupt onset, Still present Associated symptoms: Fever, Chills, Sinus pain (left maxillary.), Sore throat, Swollen nodes Contributing factors: No: Sick contact, Immunocompromised Worsened by: Other (swallowing) Similar symptoms before: Has not had sx before Review of Systems Constitutional: reports: Chills, Myalgias. denies: Fever Nose: reports: Sinus pressure / pain Throat: reports: Sore throat Respiratory: denies: Dyspnea, Cough, Wheezing PD PAST MEDICAL HISTORY - Past Medical History Past Medical History: Yes Cardiovascular: Hypertension Respiratory: None Neuro: None Endocrine/Autoimmune: None GI: None NUT FORMER: Other : None HEENT: None Psych: None Musculoskeletal: Chronic back pain, Other Derm: None, Other Other Past Medical History: Chronic rib pain - Past Surgical History Past Surgical History: Yes /NUT FORMER: Tubal ligation - Present Medications Home Medications: Ambulatory Orders Medication Instructions Recorded Confirmed Albuterol 2.5 mg INH Q4H PRN 09/08/19 11/15/23 Beclomethasone 40 Mcg [Qvar 40] 1 puffs INH BID 09/08/19 11/15/23 Cyclobenzaprine [Flexeril] 10 mg PO PRN PRN 09/08/19 11/15/23 Hydrocodone/Acetaminophen 1 - 2 each PO Q6H PRN #14 tablet 09/08/19 11/15/23 [Hydrocodon-Acetaminophen 5-325] Ondansetron Odt [Zofran] 4 mg TL Q6H PRN #10 tablet 03/10/21 11/15/23 Amoxicillin 500 mg PO TID #21 cap 11/15/23 Lidocaine Viscous 2% [Xylocaine 5 ml PO Q4H PRN #100 ml 11/15/23 Viscous 2%] Metoprolol Succinate [Toprol Xl] 25 mg PO DAILY 11/15/23 11/15/23 dexAMETHasone [Decadron] 4 mg PO DAILY #5 tablet 11/15/23 - Allergies Allergies/Adverse Reactions: Allergies Allergy/AdvReac Type Severity Reaction Status Date / Time No Known Drug Allergies Allergy Verified 11/15/23 07:05 - Social History Does the pt smoke?: No Smoking Status: Never smoker Does the pt drink ETOH?: Yes ETOH Use: Beer Does the pt have substance abuse?: No - Immunizations Immunizations are current?: Yes - POLST Patient has POLST: No PD ED PE NORMAL - Vitals Vital signs reviewed: Yes - General General: Alert and oriented X 3, Well developed/nourished - HEENT HEENT: Ears normal, Pharynx benign - Neck Neck: Supple, no meningeal sign, Other (left anterior small node with mild tender. ) - Cardiac Cardiac: RRR, No murmur - Respiratory Respiratory: Clear bilaterally - Derm Derm: Normal color, Warm and dry Results - Vitals Vitals: Vital Signs - 24 hr 11/15/23 06:50 Temperature 37.7 C Heart Rate 92 Respiratory 16 Rate Blood Pressure 132/86 H O2 Saturation 100 Oxygen O2 Source Room air - Labs Labs: Laboratory Tests 11/15/23 06:58 Group A Strep Rapid Negative PD Medical Decision Making - ED course Complexity details: considered differential (has focal sinus pressure and pain with some drainage greenish and sore throat. Minimal cough. Seems viral perhaps but also c/w bacterial sinusitis. ), d/w patient Departure - Departure Disposition: 01 Home, Self Care Clinical Impression: Sinusitis, acute, Sore throat Condition: Stable Record reviewed to determine appropriate education?: Yes Instructions: ED Sinusitis Abx Tx Follow-Up: Vadim Blanco DO [Primary Care Provider] - Prescriptions: Amoxicillin 500 mg PO TID #21 cap dexAMETHasone [Decadron] 4 mg PO DAILY #5 tablet Lidocaine Viscous 2% [Xylocaine Viscous 2%] 5 ml PO Q4H PRN #100 ml PRN Reason: Pain Comments: Your rapid strep test is negative. However you do have symptoms that could be suggestive of bacterial sinus infection and that can cause inflammation in the throat as well. Alternatively this could be accounted for all by a viral illness such as flu or rhinovirus etc. Given some indication for a localized sinus infection, I would go with some antibiotics as well as to try to help with your symptoms through anti- inflammatories and numbing medicine for the throat. You can also add in Benadryl/diphenhydramine liquid which has a bit of a numbing effect. Can use 5 to 10 mL and hold it in your mouth and throat a little while before swallowing. It can help with some of the secretions as well. I sent your prescriptions to preferred pharmacy. Continue your usual pain medications. Given your irregularity of those on a pain contract, it I would not be able to add another prescription for pain pills per se. Will see if we can help on your symptoms with the above medications and that should taper down fairly well within a day or two but might take several days to resolve fully. Forms: PCP List Discharge Date/Time: 11/15/23 08:32
[2023-11-15] MEDS: AMOXICILLIN 250 MG CAPSULE PO STA (08:24)
[2023-11-15] MEDS: HYDROcod/ACETAM 5/325 MG TABLET PO STA (08:24)
[2023-11-15] MEDS: DEXAMETHASONE 10 MG/ML VIAL PO STA (08:26)
[2023-11-15] MEDS: CHERRY SYRUP 10 ML UDC PO ONE (08:26)
[2023-11-15] MEDS: diphenhydrAMINE ELIXIR 25 MG/10 ML UDC PO STA (08:27)
[2023-11-15] MEDS: LIDOCAINE VISCOUS 2% 15 ML UDC MM STA (08:27)
== END 2023-11-15 08:32 | disposition home or self-care (01) ==
LOC: ED 06:36
DX: J02.9 Acute pharyngitis, unspecified (principal); J01.90 Acute sinusitis, unspecified
CPT/HCPCS: 87070; 87430; 99283; A9270

== ENCOUNTER 2023-12-24 11:14 | Outpatient (CLI) | payer OTHER ==
--- NOTE | 2023-12-25 15:34 | Mammography Report ---
BILATERAL DIGITAL SCREENING MAMMOGRAM 3D/2D: 12/24/2023 CLINICAL: Routine screening. Comparison is made to exams dated: 07/14/2022 ultrasound and 07/14/2022 mammogram - [facility]. Both breasts are heterogeneously dense, which may obscure small masses (category c / 51-75% glandular tissue). No significant masses, calcifications, or other findings are seen in either breast. There has been no significant interval change. IMPRESSION: NEGATIVE There is no mammographic evidence of malignancy. A 1 year screening mammogram is recommended. Based on the Tyrer Cuzick model (a risk assessment model) the patient's lifetime risk is 9.6% and her 10 year risk is 1.3%. According to the ACR, ACS, and NCCN guidelines, an annual breast MRI exam danuta g with mammogram is recommended if the patient's lifetime risk is 20% or greater. This exam was interpreted at Station ID: [id number]. NOTE: For mammograms, a report in lay terms will be sent to the patient. Approximately 15% of breast malignancies will not be visualized mammographically. In the management of a palpable breast mass, a negative mammogram must not discourage biopsy of a clinically suspicious lesion. Electronically Signed By: Nia jones/bucky:12/24/2023 16:00:08 letter sent: No_Letter ACR BI-RADS Category 1: Negative 3341F PARENCHYMAL PATTERN: (D) - The breast(s) demonstrate(s) heterogeneously dense fibroglandular shanti bro. BI-RADS CATEGORY: (1) - 1 RECOMMENDATION: (ANNUAL) - Recommend routine annual screening mammography. [id number] 1 year screening LATERALITY: (B)
== END 2023-12-24 11:15 | disposition home or self-care (01) ==
LOC: DI.N 11:14
DX: Z12.31 Encounter for screening mammogram for malignant neoplasm of breast (principal); R92.333 Mammographic heterogeneous density, bilateral breasts